=== PATIENT | female | born 1955 | race Caucasian/White ===

== ENCOUNTER → 2017-08-01 | Outpatient (CLI) | payer BC ==
--- NOTE | 2017-08-01 16:49 | RAD ---
DATE: August 01, 2017. EXAM: MAMMO MARTHA SCREENING BILATERAL HISTORY: Screening study. COMPARISON: 2014 and 2015. This study was interpreted with the benefit of Computerized Aided Detection (CAD). 2-D digital mammographic views of both breasts were performed in the CC and MLO projections. 3-D digital tomosynthesis of both breasts were performed in the CC and MLO projections and reviewed on a computer workstation. FINDINGS: The breast parenchyma is scattered and mildly dense. There are no dominant suspicious masses, suspicious microcalcifications or evidence of architectural distortion on the right side. There is a nodule present on the left side at about the 4-5:00 position approximately 2.5 cm posterior to the nipple measuring 8 mm in size. No architectural distortion or clustering of pleomorphic microcalcifications are seen on the left side. IMPRESSION: Nodule of the left breast. Recommend left breast sonography for further evaluation. BI-RADS CATEGORY: 0 INCOMPLETE: NEEDS ADDITIONAL IMAGING EVALUATION AND/OR PRIOR MAMMOGRAMS FOR COMPARISON. RECOMMENDED FOLLOW-UP: ADD ADDITIONAL IMAGING PQRS compliance statement: Patient information was entered into a reminder system with a target due date now for the next imaging study. Mammography is a sensitive method for finding small breast cancers, but it does not detect them all and is not a substitute for careful clinical examination. A negative mammogram does not negate a clinically suspicious finding and should not result in delay in biopsying a clinically suspicious abnormality. "Our facility is accredited by the [employer] Mammography [employer]." The patient's breast density may affect the ability of mammography to detect breast cancer. There are 4 categories of breast density, A, B, C and D. Breast density A means that most of the breast tissue is replaced with adipose tissue and therefore is not dense. Breast density B means that the breast tissue is mildly dense and scattered. Breast density C means that the breast tissue is heterogeneously dense. Breast density D means that the breast tissue is very dense. Breast densities especially C and D may decrease the sensitivity of mammography to detect breast cancer. Therefore, the patient may benefit from 3-D breast mammography (3D breast tomography) as a part of their screening mammogram. Insurance may or may not pay for this additional imaging. The patient's breast density based on today's mammogram is category B.
== END | disposition home or self-care (01) ==
LOC: MAMMO 14:58
PROVIDERS: ATTEND Specialist
DX: Z12.31 Encounter for screening mammogram for malignant neoplasm of breast (principal)
CPT/HCPCS: 77063; G0202; 77067

== ENCOUNTER → 2017-08-08 | Outpatient (CLI) | payer BC ==
--- NOTE | 2017-08-08 15:21 | RAD ---
EXAM: BREAST LEFT HISTORY: Left breast mass on screening examination. COMPARISON: Multiple priors including 08/01/2017 and 04/18/2015 Focused ultrasound images were obtained of the left breast. FINDINGS: Within the left breast at the 4:00 position 2 cm from the nipple there is a well-circumscribed hypoechoic mass identified measuring approximately 6 x 7 mm. No definite internal vascularity is seen. IMPRESSION: Well-circumscribed hypoechoic mass is seen within the left breast which may correspond to the mammogram finding. Suspect that this small mass has been present on prior examinations but was partially obscured by the overlying glandular tissue but is better evaluated on the recent three-dimensional tomographic exam. Recommend that the patient return in 6 months for a repeat diagnostic tomogram and ultrasound of the left breast to ensure no increase. The most likely cause is a fibroadenoma or cyst with debris but continued follow-up will be needed to ensure that this is not from a higher grade solid mass. BI-RADS CATEGORY: 3 PROBABLE BENIGN-SHORT TERM F/U RECOMMENDED FOLLOW-UP: 6M 6 MONTH FOLLOW-UP PQRS compliance statement: Patient information was entered into a reminder system with a target due date for the next mammogram. Mammography is a sensitive method for finding small breast cancers, but it does not detect them all and is not a substitute for careful clinical examination. A negative mammogram does not negate a clinically suspicious finding and should not result in delay in biopsying a clinically suspicious abnormality. "Our facility is accredited by the [employer] Mammography [employer]."
== END ==
LOC: US 13:45
PROVIDERS: ATTEND Specialist
DX: N63.20 Unspecified lump in the left breast, unspecified quadrant (principal)
CPT/HCPCS: 76641

== ENCOUNTER → 2018-01-28 | Outpatient (CLI) | payer BC ==
--- NOTE | 2018-01-28 15:26 | RAD ---
DATE: 01/28/2018 EXAM: MAMMO MARTHA DIAG LT, BREAST LEFT HISTORY: Left breast nodule follow-up COMPARISON: Left breast ultrasound and a lateral screening mammogram July 2017, screening mammogram July 2016, April 2015, January 2014 This study was interpreted with the benefit of Computerized Aided Detection (CAD). The breast parenchyma shows scattered fibroglandular densities. Breast parenchyma level B. FINDINGS: Right breast digital 2-D and 3-D tomosynthesis CC and MLO views. There is a stable subcentimeter circumscribed mass in the left breast at approximately the 4:00 position 2 cm from the nipple which has not really changed since the most remote examination available from 2012. There is stable calcifications scattered throughout the left breast and consider benign. No new suspicious mass, calcification or architectural distortion left breast. Limited left breast ultrasound: At the 4:00 position, 2 cm from the nipple, there is a stable 0.7 cm hypoechoic circumscribed nodule which corresponds to the mammographic abnormality which has been present since 2013. Impression: The 4:00 position mass in the left breast has been mammographically stable since 2013 and is considered benign. No further follow-up for this is necessary. Patient can return to screening mammogram with a target date of 6 months from now. BI-RADS CATEGORY: 2 BENIGN FINDING(S) RECOMMENDED FOLLOW-UP: 6M 6 MONTH FOLLOW-UP PQRS compliance statement: Patient information was entered into a reminder system with a target due date for the next mammogram. Mammography is a sensitive method for finding small breast cancers, but it does not detect them all and is not a substitute for careful clinical examination. A negative mammogram does not negate a clinically suspicious finding and should not result in delay in biopsying a clinically suspicious abnormality. "Our facility is accredited by the [employer] Mammography [employer]."
== END | disposition home or self-care (01) ==
LOC: MAMMO 13:23
PROVIDERS: ATTEND Specialist
DX: R92.8 Other abnormal and inconclusive findings on diagnostic imaging of breast (principal); Z85.3 Personal history of malignant neoplasm of breast
CPT/HCPCS: 76641; 77065; G0279; 77061

== ENCOUNTER → 2018-09-02 | Outpatient (CLI) | payer BC ==
--- NOTE | 2018-09-04 09:07 | RAD ---
DATE: 09/02/2018 EXAM: MAMMO MARTHA SCREENING BILATERAL HISTORY: Routine screening COMPARISON: 01/28/2018, 08/01/2017 This study was interpreted with the benefit of Computerized Aided Detection (CAD). Breast Density: SCATTERED The breast parenchyma shows scattered fibroglandular densities. Breast parenchyma level B. FINDINGS: 2-D and 3-D tomosynthesis imaging was performed in CC and MLO projections. There is an unchanged smooth nodule at the 4:00 location in the left breast. No new or enlarging breast densities are seen. Benign type calcifications are again noted. No suspicious microcalcifications have developed. IMPRESSION: Stable mammograms without evidence of malignancy. BI-RADS CATEGORY: 2 BENIGN FINDING(S) RECOMMENDED FOLLOW-UP: 12M 12 MONTH FOLLOW-UP PQRS compliance statement: Patient information was entered into a reminder system with a target due date for the next mammogram. Mammography is a sensitive method for finding small breast cancers, but it does not detect them all and is not a substitute for careful clinical examination. A negative mammogram does not negate a clinically suspicious finding and should not result in delay in biopsying a clinically suspicious abnormality. "Our facility is accredited by the [employer] Mammography [employer]."
== END | disposition home or self-care (01) ==
LOC: MAMMO 14:43
PROVIDERS: ATTEND Specialist
DX: Z12.31 Encounter for screening mammogram for malignant neoplasm of breast (principal)
CPT/HCPCS: 77063; 77067

== ENCOUNTER → 2019-09-13 | Outpatient (CLI) | payer BC ==
--- NOTE | 2019-09-13 10:27 | RAD ---
DATE: September 13, 2019 EXAM: MAMMO MARTHA SCREENING BILATERAL HISTORY: Screening study. COMPARISON: 2015 through 2018 This study was interpreted with the benefit of Computerized Aided Detection (CAD). 2-D digital mammographic views of both breasts were performed in the CC and MLO projections. 3-D digital tomosynthesis images of both breasts were performed in the CC and MLO projections and reviewed on a computer workstation. FINDINGS: Breast Density: SCATTERED The breast parenchyma shows scattered fibroglandular densities. Breast parenchyma level B.. There are new no dominant suspicious masses, suspicious microcalcifications or evidence of architectural distortion. Anterior left breast nodule is stable. IMPRESSION: No mammographic indicators for malignancy. BI-RADS CATEGORY: 2 BENIGN FINDING RECOMMENDED FOLLOW-UP: 12M 12 MONTH FOLLOW-UP PQRS compliance statement: Patient information was entered into a reminder system with a target due date September 14, 2020 for the next mammogram. Mammography is a sensitive method for finding small breast cancers, but it does not detect them all and is not a substitute for careful clinical examination. A negative mammogram does not negate a clinically suspicious finding and should not result in delay in biopsying a clinically suspicious abnormality. "Our facility is accredited by the [employer] Mammography [employer]." The patient's breast density may affect the ability of mammography to detect breast cancer. There are 4 categories of breast density, A, B, C and D. Breast density A means that most of the breast tissue is replaced with adipose tissue and therefore is not dense. Breast density B means that the breast tissue is mildly dense and scattered. Breast density C means that the breast tissue is heterogeneously dense. Breast density D means that the breast tissue is very dense. Breast densities especially C and D may decrease the sensitivity of mammography to detect breast cancer. Therefore, the patient may benefit from 3-D breast mammography (3D breast tomography) as a part of their screening mammogram. Insurance may or may not pay for this additional imaging. The patient's breast density based on today's mammogram is category B.
== END | disposition home or self-care (01) ==
LOC: MAMMO 09:10
PROVIDERS: ATTEND Specialist
DX: Z12.31 Encounter for screening mammogram for malignant neoplasm of breast (principal); N63.20 Unspecified lump in the left breast, unspecified quadrant
CPT/HCPCS: 77063; 77067

== ENCOUNTER → 2020-09-14 | Outpatient (CLI) | payer MEDICARE, BC ==
--- NOTE | 2020-09-18 15:12 | RAD ---
BILATERAL SCREENING MAMMOGRAM, 3-D History: Routine screening. Comparison: 07/26/2016, 08/01/2017, 09/02/2018, 09/13/2019. Technique: MLO and CC digital tomosynthesis (3D) images obtained. Radiologist reviewed these images on dedicated workstation. Findings: Breast Tissue Density B : There are scattered areas of fibroglandular density. There are no dominant masses, suspicious microcalcifications, or architectural distortion. No IMPRESSION: No mammographic evidence of malignancy. Recommend routine screening. BI-RADS category 1: Negative. The images were reviewed with computer-aided detection. Patient information is entered into reminder system with a target due date for the next screening mammogram. Mammography is the most sensitive method for finding small breast cancers, but it does not detect them all and is not a substitute for careful clinical examination. A negative mammogram does not negate a clinically suspicious finding and should not result in delay in biopsying a clinically suspicious abnormality. "Our facility is accredited by the [employer] Mammography [employer]." Electronically signed by: Rony Newsome MD (09/18/2020 3:09 PM) [id number]
== END ==
LOC: MAMMO 14:57
PROVIDERS: ATTEND Specialist
DX: Z12.31 Encounter for screening mammogram for malignant neoplasm of breast (principal)
CPT/HCPCS: 77063; 77067

== ENCOUNTER → 2021-10-30 | Outpatient (CLI) | payer MEDICARE, BC ==
--- NOTE | 2021-10-30 13:13 | RAD ---
Bilateral digital screening 2-D and 3-D (digital breast tomosynthesis) mammogram: Reason for examination: Routine screening. Comparison: Mammograms from 09/14/2020 and 09/13/2019. Interpretation was made with the benefit of CAD. FINDINGS: Breast density: Category B. There are scattered areas of fibroglandular density. No suspicious breast mass, malignant appearing calcifications, or architectural distortion is seen. A gain seen is an oval circumscribed mass in the retroareolar/3:00 position of the left breast. This is consistent with a benign finding. IMPRESSION: No evidence of malignancy. Assessment: BI-RADS 2. Benign finding. Recommendation: Routine screening mammograms. The patient will receive a letter with the results in the mail. Patient information will be entered i nto the mammography reminder system with a target recall date for the next mammogram. A reminder keyur er will be generated. Electronically signed by: Fauzia Ramirez MD (10/30/2021 1:10 PM) [id number]
--- NOTE | 2021-10-30 13:50 | RAD ---
DXA BONE DENSITY AXIAL History: Reason: SCREENING / Spl. Instructions: / History: Postmenopausal Comparison: December 19, 2009 TECHNIQUE: Dual energy x-ray absorptiometry of the lumbar spine and right hip was performed. T-score of average bone mineral density based was calculated based on standard deviations above or below the expected young adult normal value. Diagnostic definitions were established by the [employer]. FINDINGS: The average bone mineral density associated with L1-L4 is 0.862 g/cm^2, corresponding with a T-score of -2.6. Decreased compared to prior. The average total bone mineral density associated with right hip is 0.808 g/cm^2, corresponding with a T-score of -1.2. Increased compared to prior. Refer to the worksheets for full detail. IMPRESSION: 1. Osteoporosis. Average bone mineral density yields a T-score of -2.5 or less. Fracture risk is hig h. 2. Decreased bone marrow density within the lumbar spine compared to prior. Electronically signed by: Luis M Kruger DO (10/30/2021 1:48 PM) [id number]
== END ==
LOC: MAMMO 09:16
PROVIDERS: ATTEND Specialist
DX: Z12.31 Encounter for screening mammogram for malignant neoplasm of breast (principal); M81.0 Age-related osteoporosis without current pathological fracture; M85.80 Other specified disorders of bone density and structure, unspecified site; N63.42 Unspecified lump in left breast, subareolar
CPT/HCPCS: 77063; 77067; 77080